=== PATIENT | female | born 1980 | race Caucasian/White ===

== ENCOUNTER 2016-10-29 11:06 | Outpatient (CLI) | payer OTHER ==
--- NOTE | 2016-10-29 15:44 | Diagnostic Imaging Report ---
LISETH CHILDRESS [facility] [address] [facility].[address] [address] Report Submission Date: Oct 29, 2016 11:44:06 AM CDT Patient Study Name: VERONICA WICK Date: Oct 29, 2016 11:17:57 AM CDT Modality Type: US Gender: F Description: US RETROPERITONEAL LIMIT : 80 Institution: [facility] Physician: LISETH CHILDRESS Examination: Ultrasound kidneys History: Left renal calcification. Comparison exams: None available Findings: Right kidney measures 9.1 cm in length. Left kidney measures 10.0 cm in length. No evidence for cortical mass bilaterally. Echogenic structure within the mid calyx of the left kidney measuring 4.6 mm. No hydronephrosis bilaterally. Impression: Likely 4.6 mm left nephrolithiasis. No hydronephrosis. No evidence for cortical mass. Electronically signed on Oct 29, 2016 11:44:06 AM CDT by: Ben HOOK
== END 2016-10-29 11:07 ==
LOC: RAD 11:06
PROVIDERS: ATTEND Physician Assistant
DX: N20.0 Calculus of kidney (principal)
CPT/HCPCS: 76775

== ENCOUNTER 2017-09-13 16:41 | Outpatient (CLI) | payer OTHER ==
--- NOTE | 2017-09-13 18:02 | Diagnostic Imaging Report ---
LISETH CHILDRESS [facility] [address] [facility] [address] [address] Report Submission Date: Sep 13, 2017 5:14:40 PM CDT Patient Study Name: VERONICA WICK Date: Sep 13, 2017 4:47:47 PM CDT Modality Type: DX Gender: F Description: SPINE : 80 Institution: [facility] Physician: LISETH CHILDRESS Lumbar spine Clinical history low back pain Technique AP lateral cone down Findings: There is no fracture or lytic change. Bone density is normal. There is no pedicle destruction. The disc and vertebral body height are within normal limits. The sacrum is unremarkable Impression: Negative study Electronically signed on Sep 13, 2017 5:14:40 PM CDT by: Gavin HOOK
== END 2017-09-13 16:42 ==
LOC: RAD 16:41
PROVIDERS: ATTEND Physician Assistant
DX: M54.5 Low back pain (principal)
CPT/HCPCS: 72100

== ENCOUNTER 2018-03-09 16:28 | Outpatient (CLI) | payer BC, OTHER ==
[2018-03-09 20:19] LABS: MEAN CORPUSCULAR HEMOGLOBIN 28.5 pg (28.0-34.0)
[2018-03-09 20:20] LABS: BASOPHILS % 0.6 (0.0-1.5); EOSINOPHILS % 1.5 % (0.0-6.8); MONOCYTES % 6.8 % (0.0-11.0); NEUTROPHILS # 3.5 # k/uL (1.4-7.7)
[2018-03-09 20:21] LABS: eGFR (Non-African) > 60
--- NOTE | 2018-03-09 22:57 | Diagnostic Imaging Report ---
IZABEL PACHECO [facility] [address] [facility] [address] [place], [place]. [address] Report Submission Date: Mar 09, 2018 6:05:52 PM RENAL CASE MANAGER Patient Study Name: VERONICA WICK Date: Mar 09, 2018 5:01:41 PM RENAL CASE MANAGER Modality Type: CT\SR Gender: F Description: CT ABD PELVIS W/O CO : 80 Institution: [facility] Physician: IZABEL PACHECO CT ABDOMEN AND PELVIS WITHOUT CONTRAST HISTORY: Right flank pain for 2 days TECHNIQUE: Helically acquired images were obtained from the hemidiaphragms to the pelvic floor without IV contrast using a stone protocol. FINDINGS: On these images without IV contrast, which limits solid organ evaluation, the liver, spleen, adrenal glands, pancreas and gallbladder are unremarkable. At the upper to midpole of the left kidney, there are 3 calyceal stones with the largest measuring 2 mm. There is no left hydronephrosis. There is a single right calyceal stone measuring less than 1 mm. There is no hydronephrosis or hydroureter. No ureteral stones are noted. There are multiple round calcifications in the pelvis bilaterally, consistent with phleboliths. The appendix is normal. There is a large amount of stool throughout the entire right and transverse colon and to a lesser degree within the descending and sigmoid colon. These findings are consistent with mild constipation. No dilated small bowel loops are noted. The uterus, adnexa and bladder are unremarkable. There is no free fluid in the abdomen or pelvis. Lung bases are clear. No significant osseous abnormalities are noted. Impression: Mild constipation. Small bilateral calyceal stones. No hydronephrosis. No ureteral stones are noted. Normal appendix, well visualized. Electronically signed on Mar 09, 2018 6:05:52 PM RENAL CASE MANAGER by: Ivett HOOK
== END 2018-03-09 16:30 ==
LOC: LAB 16:28
PROVIDERS: ATTEND Family Medicine
DX: K59.09 Other constipation (principal); R10.9 Unspecified abdominal pain
CPT/HCPCS: 36415; 74176; 80053; 85025